=== PATIENT | female | born 1945 | race Caucasian/White ===

== ENCOUNTER 2016-09-16 08:39 | Day surgery (SDC) | payer MEDICARE, BC ==
[~2016-09-16] VITALS: Ht 160 cm; Wt 65.8 kg
[~2016-09-16 08:39] MED LIST: ACET-62 PO; ASCO500T9 PO; ASPI-611 PO; ATOR10TA64 PO; CALC-586 PO; IBAN150T PO; LIDOCAINE 1% (10mg/ml) 2ml SDV INJ ONE; LR 1,000 ML IV SCH; OMEP-29 PO; PROM25TA7 PO; RANI-209 PO
--- OUTSIDE RECORDS SUMMARY | 2016-09-16 08:44 | XMS REPORT | Continuity of Care Document ---
Author Author [facility] Organization [facility] Address Unknown Phone Unavailable Allergies Active Description Code Type Severity Reaction Onset Reported/Identified Relationship to Patient Clinical Status Yes Codeine 1550 Drug Allergy N/A N/A 06/29/2012 Yes tramadol 4180 Drug Allergy N/A N/A 06/29/2012 Yes Vioxx 83047 Drug Allergy N/A N/A 06/29/2012 Yes Codeine Drug Allergy 06/29/2012 Yes tramadol Drug Allergy 06/29/2012 Yes Vioxx Drug Allergy 06/29/2012 Medications Problems Date Dx Coded Attending Type Code Diagnosis Diagnosed By 06/23/2012 Charles MOORE, Titi Medina 275.2 DIS MAGNESIUM METABOLISM 06/23/2012 Charles MOORE, Titi Medina 285.1 AC POSTHEMORRHAG ANEMIA 06/23/2012 Charles MOORE, Titi Medina 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 06/23/2012 Charles MOORE, Titi Medina 458.29 OTHER IATROGENIC HYPOTENSION 06/23/2012 Charles MOORE, Titi Medina 530.81 ESOPHAGEAL REFLUX 06/23/2012 Charles MOORE, Titi Medina 716.90 ARTHROPATHY NOS-UNSPEC 06/23/2012 Charles MOORE, Titi Medina 724.02 SPINAL STENOSIS, LUMBAR REG, W/OUT NEUROGENIC FLY 06/23/2012 Charles MOORE, Titi Medina 737.30 IDIOPATHIC SCOLIOSIS 07/08/2012 JOSIE YANG MD, ELISSA Wiley 272.0 PURE HYPERCHOLESTEROLEM 07/08/2012 JOSIE YANG MD, ELISSA Wiley 530.81 ESOPHAGEAL REFLUX 07/08/2012 JOSIE YANG MD, ELISSA Wiley 564.00 CONSTIPATION NOS 07/08/2012 JOSIE YANG MD, ELISSA Wiley 724.03 SP STENOSIS-LUMB W DORIE 07/08/2012 JOSIE YANG MD, ELISSA Wiley V07.4 PMHRT 07/08/2012 ELISSA BEARDEN MD V57.89 REHABILITATION PROC NEC 07/08/2012 ELISSA BEARDEN MD V58.78 SURG AFTERCARE-MS SYST 03/30/2013 ELISSA BEARDEN MD 204.10 CLL W/O REMISSION 03/30/2013 ELISSA BEARDEN MD 272.0 PURE HYPERCHOLESTEROLEM 08/22/2014 MUNA ZAMARRIPA MD Ot 204.10 09/14/2014 MUNA ZAMARRIPA MD, Ot 204.10 08/15/2015 MUNA ZAMARRIPA MD 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 04/16/2016 ELISSA BEARDEN MD 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 04/16/2016 ELISSA BEARDEN MD E78.00 Pure hypercholesterolemia, unspecified 07/19/2016 MUNA ZAMARRIPA MD 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 Procedures Code Description Performed By Performed On 41.98 BONE MARROW OPS Titi Nicolas MD 06/23/2012 77.79 EXCISE BONE FOR GFT NEC Titi Soto MD 06/23/2012 81.05 DORSAL DORSOLUMBAR FUSION OF POSTERIOR COL/TECHN Titi Soto MD 06/23/2012 81.64 FUSION/REFUS OF 9 OR MORE VERTEBRAE Titi Soto MD 06/23/2012 84.51 INSERTION OF INTERBODY SPINAL FUSION DEVICE Titi Soto MD 06/23/2012 15392 COMPLETE CBC, AUTOMATED ELISSA BEARDEN MD 03/30/2013 46797 ROUTINE VENIPUNCTURE MUNA ZAMARRIPA MD 08/15/2015 35078 COMPLETE CBC, AUTOMATED MUNA ZAMARRIPA MD 08/15/2015 99942 COMPLETE CBC, AUTOMATED ELISSA BEARDEN MD 04/16/2016 [id number] ROUTINE VENIPUNCTURE MUNA ZAMARRIPA MD 07/19/2016 77911 COMPLETE CBC, AUTOMATED MUNA ZAMARRIPA MD 07/19/2016 Results Test Result Range HGB HCT - 06/23/12 06:10 MEAN CELL VOLUME 96.8 fl 80.0-100.0 HEMOGLOBIN 14.4 gm/dL 12.0-16.0 HEMATOCRIT 45.4 % 37.0-47.0 URINALYSIS, ROUTINE - 06/23/12 08:10 UA LEUKOCYTE ESTERASE DIPSTICK NEGATIVE NEGATIVE UA NITRITE DIPSTICK NEGATIVE NEGATIVE UA PROTEIN DIPSTICK NEGATIVE NEGATIVE UA GLUCOSE DIPSTICK NEGATIVE NEGATIVE UA KETONE DIPSTICK NEGATIVE NEGATIVE UA UROBILINOGEN DIPSTICK NORMAL NORMAL UA BILIRUBIN DIPSTICK NEGATIVE NEGATIVE UA BLOOD DIPSTICK NEGATIVE NEGATIVE UA VOLUME FOR EXAM 8.0 mL (12mL STD) UA SPECIFIC GRAVITY 1.008 1.015-1.025 UR PH 8.0 5.0-7.0 URINE CULTURE - 06/23/12 08:10 Uncategorized ARTERIAL BLOOD GAS - 06/23/12 14:30 ABG BASE EXCESS -4.9 meq/L -3.0-3.0 ABG BICARBONATE 23.6 meq/L 23.0-28.0 ABG PCO2 61 mm Hg 34-45 ABG PH 7.20 7.35-7.45 ABG PO2 184 mm Hg 75-100 ABG O2 SATURATION 98 % 93-100 HGB HCT (CCL) - 06/23/12 14:30 MEAN CELL VOLUME 98.4 fl 80.0-100.0 HEMOGLOBIN 9.6 gm/dL 12.0-16.0 HEMATOCRIT 30.1 % 37.0-47.0 POTASSIUM (CCL) - 06/23/12 14:30 POTASSIUM 3.9 mmol/L 3.5-5.3 GLUCOSE (CCL) - 06/23/12 14:30 GLUCOSE 155 mg/dL 70-99 GLUCOSE (POC) - 06/24/12 00:11 GLUCOSE (POC) 131 mg/dL 70-99 CBC - 06/24/12 03:30 MEAN CELL HGB 31.2 pg 27.0-33.0 MEAN CELL HGB CONCENTRATION 31.3 g/dL 32.0-37.0 MEAN CELL VOLUME 99.7 fl 80.0-100.0 RED BLOOD CELL 2.95 m/cumm 4.00-6.00 RED CELL DISTRIBUTION WIDTH 13.8 % 11.0- 15.6 WHITE BLOOD CELL 19.5 k/cumm 5.0-10.0 HEMOGLOBIN 9.2 gm/dL 12.0-16.0 HEMATOCRIT 29.4 % 37.0-47.0 PLATELET COUNT 125 k/cumm 150-400 METABOLIC PANEL, BASIC - 06/24/12 03:30 POTASSIUM 4.2 mmol/L 3.5-5.3 EST GFR (MDRD) > 60 mL/min > 59 ANION GAP 7 mmol/L 5-15 EST CrCl (CG) 48 mL/min > 59 GLUCOSE 113 mg/dL 70-99 CALCIUM 7.6 mg/dL 8.5-10.1 BLOOD UREA NITROGEN 12 mg/dL 7-20 CREATININE 0.9 mg/dL 0.6-1.0 SODIUM 142 mmol/L 135-148 CHLORIDE 111 mmol/L 98-110 CARBON DIOXIDE 24 mmol/L 21-32 MRSA SURVEILLANCE SCREEN - 06/24/12 09:40 Uncategorized METABOLIC PANEL, BASIC - 06/25/12 04:44 POTASSIUM 3.9 mmol/L 3.5-5.3 EST GFR (MDRD) > 60 mL/min > 59 ANION GAP 9 mmol/L 5-15 EST CrCl (CG) > 60 mL/min > 59 GLUCOSE 123 mg/dL 70-99 CALCIUM 8.4 mg/dL 8.5-10.1 BLOOD UREA NITROGEN 8 mg/dL 7-20 CREATININE 0.7 mg/dL 0.6-1.0 SODIUM 141 mmol/L 135-148 CHLORIDE 106 mmol/L 98-110 CARBON DIOXIDE 26 mmol/L - MAGNESIUM - 06/25/12 04:44 MAGNESIUM 1.7 mg/dL 1.8-2.4 CBC - 06/25/12 04:44 MEAN CELL HGB 31.2 pg 27.0-33.0 MEAN CELL HGB CONCENTRATION 31.9 g/dL 32.0-37.0 MEAN CELL VOLUME 97.9 fl 80.0-100.0 RED BLOOD CELL 2.82 m/cumm 4.00-6.00 RED CELL DISTRIBUTION WIDTH 13.9 % 11.0- 15.6 WHITE BLOOD CELL 23.1 k/cumm 5.0-10.0 HEMOGLOBIN 8.8 gm/dL 12.0-16.0 HEMATOCRIT 27.6 % 37.0-47.0 PLATELET COUNT 136 k/cumm 150-400 CBC - 06/26/12 05:08 MEAN CELL HGB 31.5 pg 27.0-33.0 MEAN CELL HGB CONCENTRATION 32.6 g/dL 32.0-37.0 MEAN CELL VOLUME 96.4 fl 80.0-100.0 RED BLOOD CELL 2.51 m/cumm 4.00-6.00 RED CELL DISTRIBUTION WIDTH 13.5 % 11.0- 15.6 WHITE BLOOD CELL 18.7 k/cumm 5.0-10.0 HEMOGLOBIN 7.9 gm/dL 12.0-16.0 HEMATOCRIT 24.2 % 37.0-47.0 PLATELET COUNT 138 k/cumm 150-400 METABOLIC PANEL, BASIC - 06/26/12 05:08 POTASSIUM 3.6 mmol/L 3.5-5.3 EST GFR (MDRD) > 60 mL/min > 59 ANION GAP 8 mmol/L 5-15 EST CrCl (CG) > 60 mL/min > 59 GLUCOSE 106 mg/dL 70-99 CALCIUM 7.5 mg/dL 8.5-10.1 BLOOD UREA NITROGEN 7 mg/dL 7-20 CREATININE 0.7 mg/dL 0.6-1.0 SODIUM 142 mmol/L 135-148 CHLORIDE 106 mmol/L 98-110 CARBON DIOXIDE 28 mmol/L 21-32 MAGNESIUM - 06/26/12 05:08 MAGNESIUM 1.7 mg/dL 1.8-2.4 CBC - 06/27/12 05:02 MEAN CELL HGB 30.4 pg 27.0-33.0 MEAN CELL HGB CONCENTRATION 32.5 g/dL 32.0-37.0 MEAN CELL VOLUME 93.8 fl 80.0-100.0 RED BLOOD CELL 2.89 m/cumm 4.00-6.00 RED CELL DISTRIBUTION WIDTH 16.0 % 11.0- 15.6 WHITE BLOOD CELL 13.9 k/cumm 5.0-10.0 HEMOGLOBIN 8.8 gm/dL 12.0-16.0 HEMATOCRIT 27.1 % 37.0-47.0 PLATELET COUNT 149 k/cumm 150-400 CBC - 03/30/13 09:55 Eos # 0.09 x10^3 0-0.5 Eos % 0.4 % 0-4 HCT 43.7 % 37.0-47.0 HGB 14.2 G/DL 12.0-16.0 Lymph 87.0 Lymph # 17.29 x10^3 1.0-4.0 Lymph % 81.1 % 20-50 MCH 31.1 PG 27.0-31.0 MCHC 32.5 G/DL 32.0-36.0 MCV 95.6 FL 81-99 Graves 2.0 Graves # 0.58 x10^3 0.0-0.8 Graves % 2.7 % 1.0-9.0 MPV 10.7 FL 6.0-10.0 Platelet 245 x10^3 150-400 RBC 4.57 x10^3 4.20-5.40 RDW 13.8 % 12-15 Seg 11.0 Smudge Cells 2+ WBC 21.33 x10^3 4.8-10.8 Baso # 0.07 x10^3 0-0.2 Baso % 0.3 % 0-2 Neut % 15.5 % 50-70 Neut # 3.30 x10^3 3.0-7.0 CBC - 08/15/15 11:23 Eos 2.0 Eos # 0.11 x10^3 0-0.5 Eos % 0.4 % 0-4 HCT 42.0 % 37.0-47.0 HGB 13.6 G/DL 12.0-16.0 Lymph 81.0 Lymph # 22.72 x10^3 1.0-4.0 Lymph % 86.9 % 20-50 MCH 31.4 PG 27.0-31.0 MCHC 32.4 G/DL 32.0-36.0 MCV 97.0 FL 81-99 Graves 1.0 Graves # 0.81 x10^3 0.0-0.8 Graves % 3.1 % 1.0-9.0 MPV 10.4 FL 6.0-10.0 Platelet 215 x10^3 150-400 RBC 4.33 x10^3 4.20-5.40 RDW 13.6 % 12-15 Seg 12.0 Smudge Cells 3 SMUDGE CELLS SEEN. LLH WBC 26.15 x10^3 4.8-10.8 Lymph Atypical 4.0 Baso # 0.06 x10^3 0-0.2 Baso % 0.2 % 0-2 Neut % 9.4 % 50-70 Neut # 2.45 x10^3 3.0-7.0 CBC - 04/16/16 15:18 Eos # 0.11 x10^3 0-0.5 Eos % 0.5 % 0-4 HCT 39.4 % 37.0-47.0 HGB 12.9 G/DL 12.0-16.0 Lymph # 17.98 x10^3 1.0-4.0 Lymph % 86.7 % 20-50 MCH 31.9 PG 27.0-31.0 MCHC 32.7 G/DL 32.0-36.0 MCV 97.3 FL 81-99 Graves # 0.46 x10^3 0.0-0.8 Graves % 2.2 % 1.0-9.0 MPV 10.0 FL 6.0-10.0 Platelet 299 x10^3 150-400 RBC 4.05 x10^3 4.20-5.40 RDW 13.6 % 12-15 WBC 20.75 x10^3 4.8-10.8 Baso # 0.04 x10^3 0-0.2 Baso % 0.2 % 0-2 Neut % 10.4 % 50-70 Neut # 2.16 x10^3 3.0-7.0 CBC - 07/19/16 14:19 Eos # 0.12 x10^3 0-0.5 Eos % 0.4 % 0-4 HCT 41.7 % 37.0-47.0 HGB 13.6 G/DL 12.0-16.0 Lymph 80.0 MCH 31.7 PG 27.0-31.0 MCHC 32.6 G/DL 32.0-36.0 MCV 97.2 FL 81-99 Graves 4.0 MPV 10.8 FL 6.0-10.0 Platelet 213 x10^3 150-400 RBC 4.29 x10^3 4.20-5.40 RDW 13.4 % 12-15 Seg 13.0 Smudge Cells 2+ WBC 27.52 x10^3 4.8-10.8 Lymph Atypical 3.0 Baso # 0.20 x10^3 0-0.2 Baso % 0.7 % 0-2 Encounters ACCT No. Visit Date/Time Discharge Status Pt. Type Provider Facility Loc./Unit Complaint [id number] 06/23/2012 05:17:00 2012 11:24:00 DIS Inpatient Charles MOORE, [facility] [id number]
--- OUTSIDE RECORDS SUMMARY | 2016-09-16 08:44 | XMS REPORT | Continuity of Care Document ---
Author Author [facility] Organization [facility] Address Unknown Phone Unavailable Care Team Providers Care Contracting Manager Name Role Phone Primary Care Physician Unavailable Source Comments Some departments are not documenting in the electronic medical record. If you do not see the information that you expected, contact Release of Information in the Health Information Management department at [phone] for further assistance in locating additional records.[facility] Active Allergies and Adverse Reactions Not on File Current Medications Not on file Active Problems Not on file Social History Tobacco Use Types Packs/Day Years Used Date Never Assessed Plan of Care Health Maintenance Due Date Last Done Comments Hepatitis C Screening 1946 Physical (Comprehensive) 1953 Exam Pertussis Vaccine 1957 Tetanus Vaccine 09/06/1963 Breast Cancer Screening 1986 Colorectal Cancer 1996 Screening Shingles Vaccine 2006 Osteoporosis Screening 09/06/2011 Prevnar/Pneumovax (#1) 09/06/2011 Influenza Vaccine 01/31/2017 Results from Last 3 Months Not on file
--- OUTSIDE RECORDS SUMMARY | 2016-09-16 08:44 | XMS REPORT ---
Author Author [facility]. Organization [facility] Address [address] [place] [address] Phone [phone] Summary purpose CCDA Sent to [facility] Chief Complaint and Reason for Visit No authorized Reason for Visit (Admitting Diagnosis) is available for this visit. Problem list No authorized problems tracked for continuity of care are available for this visit. Encounters No authorized problems tracked for encounter diagnoses are available for this visit. Medications No medications recorded for this patient visit Allergies, adverse reactions, alerts Allergen Category Ingredient Status Reaction Severity Onset tramadol Drug tramadol Active Vioxx Drug Vioxx Active Vioxx Drug rofecoxib Active Codeine Drug Codeine Active Immunizations No immunizations recorded for this patient visit Relevant diagnostic tests and/or laboratory data RESULTS CBC [id number]:50:00 Result Normal Range Units WBC HC 27.52 4.8-10.8 x103/mm3 Result Amended on 2016-07-19 at 14:22:10. Previous status was AK. CALLED TO VESNA AT 11:35 07-19-16 BY LAD Eosinophil % 0.4 0-4 % Result Amended on 2016-07-19 at 14:22:10. Previous status was AK. Basophil % 0.7 0-2 % Result Amended on 2016-07-19 at 14:22:10. Previous status was AK. Eosinophil # 0.12 0-0.5 x103/mm3 Result Amended on 2016-07-19 at 14:22:10. Previous status was AK. Basophil # 0.20 0-0.2 x103/mm3 Result Amended on 2016-07-19 at 14:22:10. Previous status was AK. RBC 4.29 4.20-5.40 x103/mm3 Result Amended on 2016-07-19 at 14:22:10. Previous status was AK. HGB 13.6 12.0-16.0 g/dl Result Amended on 2016-07-19 at 14:22:11. Previous status was AK. HCT 41.7 37.0-47.0 % Result Amended on 2016-07-19 at 14:22:11. Previous status was AK. MCV 97.2 81-99 FL Result Amended on 2016-07-19 at 14:22:11. Previous status was AK. MCH H 31.7 27.0-31.0 pg Result Amended on 2016-07-19 at 14:22:11. Previous status was AK. MCHC 32.6 32.0-36.0 g/dl Result Amended on 2016-07-19 at 14:22:11. Previous status was AK. RDW 13.4 12-15 % Result Amended on 2016-07-19 at 14:22:11. Previous status was AK. Platelet 213 150-400 x103/mm3 Result Amended on 2016-07-19 at 14:22:11. Previous status was AK. MPV H 10.8 6.0-10.0 FL Result Amended on 2016-07-19 at 14:22:11. Previous status was AK. Manual Differential [id number]:00 Result Normal Range Units Seg 13.0 Result Amended on 2016-07-19 at 14:22:11. Previous status was AK. Lymph 80.0 Result Amended on 2016-07-19 at 14:22:11. Previous status was AK. Hardee 4.0 Result Amended on 2016-07-19 at 14:22:11. Previous status was AK. Lymph Atypical 3.0 Result Amended on 2016-07-19 at 14:22:11. Previous status was AK. Smudge Cells 2+ Result Amended on 2016-07-19 at 14:22:11. Previous status was AK. History of procedures Procedure Code Code Type Description Date Performed Performing Physician 15836 CPT-4 COMPLETE CBC, AUTOMATED 07-19-2016 YELLOW JACKET PAGE 08122 CPT-4 ROUTINE VENIPUNCTURE 07-19-2016 YELLOW JACKET PAGE Functional status No functional or cognitive status observations are available for this visit. Vital signs No authorized vital signs are available for this visit. Social history No Social History or smoking status observations were recorded for this visit. ( Unknown if ever smoked.) Treatment Plan No treatment plan text is available for this visit. Hospital discharge instructions No discharge instruction text is available for this visit.
--- OUTSIDE RECORDS SUMMARY | 2016-09-16 08:45 | XMS REPORT ---
Author Author [facility]. Organization [facility] Address [address] [place] [address] Phone [phone] Summary purpose CCDA Sent to [facility] Chief Complaint and Reason for Visit [...] diagnostic tests and/or laboratory data RESULTS CBC [id number]:00 Result Normal Range Units WBC HC 26.15 4.8-10.8 x103/mm3 Result Amended on 2015-08-15 at 11:24:23. Previous status was FR. CALLED TO OSCAR Philip/ PAGE@ 11:20 16LLH Neutrophil % L 9.4 50-70 % Result Amended on 2015-08-15 at 11:24:23. Previous status was FR. Lymph % H 86.9 20-50 % Result Amended on 2015-08-15 at 11:24:23. Previous status was FR. Sunflower % 3.1 1.0-9.0 % Result Amended on 2015-08-15 at 11:24:23. Previous status was FR. Eosinophil % 0.4 0-4 % Result Amended on 2015-08-15 at 11:24:23. Previous status was FR. Basophil % 0.2 0-2 % Result Amended on 2015-08-15 at 11:24:23. Previous status was FR. Neutrophil # L 2.45 3.0-7.0 x103/mm3 Result Amended on 2015-08-15 at 11:24:23. Previous status was FR. Lymph # H 22.72 1.0-4.0 x103/mm3 Result Amended on 2015-08-15 at 11:24:23. Previous status was FR. Sunflower # H 0.81 0.0-0.8 x103/mm3 Result Amended on 2015-08-15 at 11:24:23. Previous status was FR. Eosinophil # 0.11 0-0.5 x103/mm3 Result Amended on 2015-08-15 at 11:24:23. Previous status was FR. Basophil # 0.06 0-0.2 x103/mm3 Result Amended on 2015-08-15 at 11:24:23. Previous status was FR. RBC 4.33 4.20-5.40 x103/mm3 Result Amended on 2015-08-15 at 11:24:23. Previous status was FR. HGB 13.6 12.0-16.0 g/dl Result Amended on 2015-08-15 at 11:24:24. Previous status was FR. HCT 42.0 37.0-47.0 % Result Amended on 2015-08-15 at 11:24:24. Previous status was FR. MCV 97.0 81-99 FL Result Amended on 2015-08-15 at 11:24:24. Previous status was FR. MCH H 31.4 27.0-31.0 pg Result Amended on 2015-08-15 at 11:24:24. Previous status was FR. MCHC 32.4 32.0-36.0 g/dl Result Amended on 2015-08-15 at 11:24:24. Previous status was FR. RDW 13.6 12-15 % Result Amended on 2015-08-15 at 11:24:24. Previous status was FR. Platelet 215 150-400 x103/mm3 Result Amended on 2015-08-15 at 11:24:24. Previous status was FR. MPV H 10.4 6.0-10.0 FL Result Amended on 2015-08-15 at 11:24:24. Previous status was FR. Manual Differential [id number]:00 Result Normal Range Units Seg 12.0 Lymph 81.0 Sunflower 1.0 Eos 2.0 Lymph Atypical 4.0 Smudge Cells [address] [facility] History of procedures No procedures recorded for this patient visit. Functional status No functional or cognitive status [...]
--- OUTSIDE RECORDS SUMMARY | 2016-09-16 08:45 | XMS REPORT ---
Author Author [facility]. Organization [facility] Address [address] [place] [address] Phone [phone] Summary purpose CCDA Sent to [facility] Chief Complaint and Reason for Visit No [...] diagnostic tests and/or laboratory data RESULTS CBC [id number]:00 Result Normal Range Units WBC HC 20.75 4.8-10.8 x103/mm3 Neutrophil % L 10.4 50-70 % Lymph % H 86.7 20-50 % [place] % 2.2 1.0-9.0 % Eosinophil % 0.5 0-4 % Basophil % 0.2 0-2 % Neutrophil # L 2.16 3.0-7.0 x103/mm3 Lymph # H 17.98 1.0-4.0 x103/mm3 [place] # 0.46 0.0-0.8 x103/mm3 Eosinophil # 0.11 0-0.5 x103/mm3 Basophil # 0.04 0-0.2 x103/mm3 RBC L 4.05 4.20-5.40 x103/mm3 HGB 12.9 12.0-16.0 g/dl HCT 39.4 37.0-47.0 % MCV 97.3 81-99 FL MCH H 31.9 27.0-31.0 pg MCHC 32.7 32.0-36.0 g/dl RDW 13.6 12-15 % Platelet 299 150-400 x103/mm3 MPV 10.0 6.0-10.0 FL History of procedures No procedures recorded for [...]
[2016-09-16 08:51] VITALS: Ht 160 cm; Wt 65.8 kg
[2016-09-16 08:52] VITALS: BP 194/88; PULSE 69; RESP 12; TEMP 98.4; O2SAT 98
[2016-09-16 09:24] VITALS: BP 161/71; PULSE 64
--- NOTE | 2016-09-16 10:39 | ANESPREOP ---
Anesthesia Record Date and Time DATE: 09/16/16 TIME: 10:37 Pre-Op Diagnosis barretts esoph. Proposed Surgical Procedure EGD Allergies: Coded Allergies: No Known Drug Allergies (Verified Allergy, Unknown, 09/16/16) Ht/Wt/BMI Height: 5 ' 3.00 " Weight: 65.800 kg BMI: 25.7 kg/m2 Vital Signs Date Time Temp Pulse Resp B/P Pulse Ox O2 Delivery O2 Flow Rate FiO2 09/16/16 09:24 64 161/71 09/16/16 08:52 98.4 12 98 Room Air Medications Inpatient Medications Current Medications Medications (Trade) Dose Ordered Sig/Lucretia Start Time Stop Time Status Last Admin Dose Admin Lactated Ringer's (Lactated Ringers) 1,000 ml @ 30 mls/hr Q24H 09/16/16 07:00 09/16/16 09:59 30 MLS/HR Acetaminophen (Acetaminophen) 500 Mg Tablet, 1-2 TAB PO Q4HPRN PRN for PAIN, ( Reported) Do not exceed 3,200 mg of acetaminophen in a 24 hours period. Last Taken: on 09/15/16 0800 Ascorbic Acid (Vitamin C) 500 Mg Tablet, 1 TAB PO BID, (Reported) Last Taken: on 09/15/16 0800 Aspirin (Aspirin) 81 Mg Tablet, 81 MG PO DAILY, (Reported) Last Taken: on 09/15/16 0800 Atorvastatin Calcium (Atorvastatin Calcium) 10 Mg Tablet, 1 TAB PO HS, (Reported) Last Taken: on 09/15/16 2100 Calcium Carbonate/Vitamin D3 (Calcium + D 600 Mg Tablet) 1 Tab Tablet, 1 TAB PO BID, (Reported) Last Taken: on 09/15/16 0800 Ibandronate Sodium (Boniva) 150 Mg Tablet, 1 TAB PO 1 MONTH, (Reported) Last Taken: on 08/31/16 Omeprazole (Prilosec) 20 Mg Capsule.dr, 20 MG PO DAILY PRN for ACID REFLUX, (Reported) Last Taken: on Unknown Date & Time Promethazine HCl (Promethazine HCl) 25 Mg Tablet, 1 TAB PO Q4-6HPRN PRN for NAUSEA, (Reported) Last Taken: on Unknown Date & Time Ranitidine Hcl (Ranitidine Hcl) 75 Mg Tablet, 75 MG PO for ACID REFLUX, (Reported) Last Taken: on 09/15/16 1200 Currently on Beta Walker: No Medical/Surgical History Anesthesia PMH: Reports: Arthritis ( OA ), Cancer (LEUKEMIA), Deep Vein Thrombosis (HX BLOOD CLOTS ), Hiatal Hernia, Reflux, Denies: *Angina, *Diabetes , *Dyspnea, *Hypertension, *MT, Anesthesia Reactions (NO AIRWAY ISSUES, N ), Asthma, Blood Transfusion Reac, CHF, COPD, CVA/Stroke/TIA, Clotting Problems, Glaucoma, Hepatitis, Malignant Hyperthermia, Pneumonia, Renal Disease, Seizures , Sleep Apnea, Thyroid Disease, Tuberculosis Smoking Status: Never smoker Has pt. smoked today?: No Use Chewing Tobacco?: No Second Hand Exposure: No Substance Use Type: does not use Substance last used: unknown Alcohol Intake: a few times a month Last Drink: unknown HX of Last Menstrual Period: HYST. Past Surgical History Orthopedic Surgeries: Yes - BACK SURGERY TO CORRECT SCOLIOSIS Abdominal Surgeries: Yes - APPY Genitourinary Surgeries: No Cardiac Surgeries: No Endocrine Surgeries: No Reproductive Surgeries: Yes - TUBAL, HYST Neurological Surgeries: No Ear Surgeries: No Nose Surgeries: No Throat Surgeries: Yes - EGD X2 Other Surgeries: No Anesthesia Adverse Reactions: FOUND nausea and vomiting Family Hx of Anesthesia Advers: none Hx of Motion Sickness: Yes Pertinent Findings EKG Rhythm: Sinus Rhythm Physical Exam Respiratory: Bilat breath sounds equal, Lungs clear Cardiovascular: FOUND Regular rate, rhythm, FOUND No murmur Airway Assessment Mallampati Score: I TMD: 3 Fingerbreadths Neck Extension: Good Overall Assessment: No Airway Concerns ASA: 2 Plan Anesthesia Plan: TIVA Discussion Discussed risks/options/alternatives of anesthesia and questions answered. Patient consents. Nursing pain assessment noted. Present: Spouse Attestation Statement Prior to the delivery of any anesthetic medication, I examined the patient, developed the plan, obtained the patient's consent and discussed the risk and benefits of the procedure with the patient/guardian. ESTRADA STANLEY CRNA Sep 16, 2016 10:39
[2016-09-16] MEDS ORDERED: LIDOCAINE VISCOUS 2% Oral Soln 15ml UD ONE (10:40)
[2016-09-16] MEDS ORDERED: LIDOCAINE 1% (10mg/ml) 2ml SDV ONE (10:42)
[2016-09-16] MEDS ORDERED: PROPOFOL 500mg 50 ML IV ONE (10:42)
[2016-09-16] MEDS ORDERED: ONDANSETRON 4mg/2ml INJECTION ONE (10:55)
[2016-09-16 11:00] VITALS: BP 111/59; PULSE 67; RESP 20; TEMP 97; O2SAT 98
--- NOTE | 2016-09-16 11:11 | ANESPO ---
Post-Op Note Date 09/16/16 Time: 11:11 Status Pt Participated in Evaluation: Pt participated in person Vital Signs Date Time Temp Pulse Resp B/P Pulse Ox O2 Delivery O2 Flow Rate FiO2 09/16/16 11:00 97.0 67 20 111/59 98 Room Air Respiratory Function: Airway patent, Regular respirations Cardiovascular Function: Regular pulse Mental Status: Alert/oriented Pain Level Intensity: 2 Unable to Assess Pain Due To: Medicated/Sleeping Hydration: Taking po fluids, IV infusing Complications during Recovery None apparent Post-Anesthesia Notes pt. acosta. well Follow-Up Instructions Instructions Per Surgeon Additional Information none ESTRADA STANLEY CRNA Sep 16, 2016 11:11
[2016-09-16 11:15] VITALS: BP 125/84; PULSE 68; RESP 21; O2SAT 100
[2016-09-16 11:30] VITALS: BP 132/81; PULSE 67; RESP 22; O2SAT 99
[2016-09-16 11:36] VITALS: BP 162/74; PULSE 60; RESP 16; O2SAT 100
--- NOTE | 2016-09-16 12:22 | OPNOTEF ---
DATE OF SERVICE 09/16/2016 SURGEON Lauri Hall MD PREOPERATIVE DIAGNOSIS Personal history for Murray's metaplasia. POSTOPERATIVE DIAGNOSIS Personal history for Murray's metaplasia, minimal hiatal hernia, irregular GE junction. PROCEDURE Esophagogastroduodenoscopy with circumferential biopsies from distal esophagus via cold biopsy technique. ANESTHESIA TIVA BRIEF HISTORY/INDICATIONS Mrs. Cesar is a 71-year-old female who presents today to undergo esophagogastroduodenoscopy as a result of her personal history for Murray's metaplasia in the past. For completeness please refer to notes included in the patient's chart. FINDINGS Upon upper endoscopy the esophagus, stomach and duodenum were found to be essentially within normal limits with the exception the patient was found to have a small 2-3 cm hiatal hernia. The patient was found to have some minimal irregularity of the squamocolumnar junction. Multiple circumferential biopsies were obtained from the distal esophagus as a result of this irregularity and her prior history for Murray's metaplasia. 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 DESCRIPTION OF PROCEDURE After informed consent was obtained, the patient was brought to the endoscopy suite and placed on the table in left lateral decubitus position. The patient subsequently underwent total intravenous anesthesia by the nurse train reservation clerk per my request. A formal time-out was then completed. Next, an Olympus gastroscope was inserted into the oral hypopharynx and subsequently the esophagus under direct visualization. The scope was then continued to be advanced through the esophagus, stomach, pylorus, duodenal bulb, into the second portion of the duodenum. The scope was slowly withdrawn. First and second portions of the duodenum were within normal limits. No evidence for duodenitis or ulcerations were noted. The scope was withdrawn back into the prepyloric region and antrum. As stated above, there was some slight areas of erythema extending out from the pyloric region suggestive of gastric antral ectasia. Photo was obtained for documentation purposes. No biopsies were performed. A J-maneuver was then performed. Cardia and fundus were within normal limits. The patient was found to have a minimal hiatal hernia upon J-maneuver. Scope was allowed to straighten and slowly withdrawn. The remaining corpus of the stomach was well visualized and again without noted abnormalities. Scope was withdrawn back to the level of the diaphragm. Squamocolumnar junction was located about 2-3 cm above the level of the diaphragm as a result of a small hiatal hernia. Squamocolumnar junction was irregular and there was some progression of the columnar mucosa upon the squamous epithelium to a length of about 5-8 mm at a few locations. Additionally there were a few small islands of columnar mucosa located a centimeter or so above the GE junction. Several circumferential biopsies were obtained from the distal esophagus via cold biopsy technique. Gastroscope was then slowly withdrawn. The remaining esophageal mucosa was found to be within normal limits. Patient tolerated the procedure without difficulty and was sent back to the preop area in stable condition. We will await the biopsy results from today's esophagogastroduodenoscopy and will proceed accordingly with further recommendations thereafter. From a medical standpoint, the patient did state that her heartburn was well controlled medical therapy. MTDD
== END 2016-09-16 11:55 | disposition home or self-care (01) ==
LOC: SCU 08:39
PROVIDERS: ATTEND Surgery
DX: K20.9 Esophagitis, unspecified (principal); K44.9 Diaphragmatic hernia without obstruction or gangrene; Z87.19 Personal history of other diseases of the digestive system
CPT/HCPCS: 43239; J2405; J7120; 88305